=== PATIENT | female | born 1990 | race Caucasian/White ===

== ENCOUNTER 2016-11-09 22:49 | Outpatient (CLI) | payer OTHER | END 2016-11-10 00:27 | disposition home or self-care (01) | LOC: GENOP 22:49 | DX: O99.89 Other specified diseases and conditions complicating pregnancy, childbirth and the puerperium (principal) | CPT/HCPCS: 59025 ==

== ENCOUNTER 2016-11-14 13:34 | Emergency (ER) | payer OTHER | END 2016-11-14 17:41 | disposition home or self-care (01) | LOC: ER1 13:34 | DX: O21.9 Vomiting of pregnancy, unspecified (principal); O99.89 Other specified diseases and conditions complicating pregnancy, childbirth and the puerperium; R10.9 Unspecified abdominal pain; R14.0 Abdominal distension (gaseous); Z3A.27 27 weeks gestation of pregnancy; Z88.2 Allergy status to sulfonamides | CPT/HCPCS: 99284 ==

== ENCOUNTER 2016-11-14 17:25 | Outpatient (CLI) | payer OTHER ==
[~2016-11-14] VITALS: Ht 162.6 cm; Wt 81.6 kg
[2016-11-14 18:30] LABS: HEMOGLOBIN 10.8 gm/dl (12.3-15.3); RED BLOOD COUNT 3.95 M/UL (4.00-5.10); WHITE BLOOD COUNT 8.8 K/UL (4.5-11.0)
[2016-11-14 19:12] LABS: BUN/CREATININE RATIO 15 (0-10)
== END 2016-11-14 23:40 | disposition home or self-care (01) ==
LOC: GENOP 17:25
PROVIDERS: Obstetrics & Gynecology
DX: O26.892 Other specified pregnancy related conditions, second trimester (principal); G47.62 Sleep related leg cramps; Z3A.27 27 weeks gestation of pregnancy
CPT/HCPCS: 36415; 80053; 85025; 96360; 96361; J2405; J7120

== ENCOUNTER 2016-12-27 14:27 | Outpatient (CLI) | payer OTHER | END 2016-12-27 16:27 | disposition home or self-care (01) | LOC: GENOP 14:27 | DX: O36.8130 Decreased fetal movements, third trimester, not applicable or unspecified (principal); R10.9 Unspecified abdominal pain; O26.893 Other specified pregnancy related conditions, third trimester; Z3A.33 33 weeks gestation of pregnancy | CPT/HCPCS: 59025; 81001 ==

== ENCOUNTER 2017-01-11 03:29 | Outpatient (CLI) | payer OTHER | END 2017-01-11 05:17 | disposition home or self-care (01) | LOC: GENOP 03:29 | DX: O99.89 Other specified diseases and conditions complicating pregnancy, childbirth and the puerperium (principal); R10.30 Lower abdominal pain, unspecified; Z3A.26 26 weeks gestation of pregnancy | CPT/HCPCS: 81001; G0463 ==